=== PATIENT | male | born 1950 | race Caucasian/White ===

== ENCOUNTER 2018-11-02 10:59 | Emergency (ER) | payer BC, MEDICARE, OTHER ==
[2018-11-02] MEDS ORDERED: Morphine VIAL* 4 MG/ML VIAL (1 ml vial) IV ONE (11:21)
[2018-11-02 12:43] VITALS: BP 130/72
--- NOTE | 2018-11-02 15:27 | ED ---
Upper Extremity Pain - HPI Summary HPI Summary: Patient is a 68-year-old male who presents to the ED after a fall onto the left shoulder. He endorses left shoulder pain without pain to the elbow or clavicle. He denies hitting his head or LOC. He endorses limited range of motion and pain is worse with external rotation and abduction of the arm. He has never injured this shoulder before. 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 He denies any numbness or tingling, denies any color temperature changes to the ipsilateral arm. - History of Current Complaint Chief Complaint: EDExtremityUpper Stated Complaint: LEFT ARM INJURY Time Seen by Provider: 11/02/18 11:19 Hx Obtained From: Patient Mechanism Of Injury: Direct Blow Onset/Duration: Started Hours Ago Timing: Constant Severity Initially: Severe Severity Currently: Severe Pain Location: Shoulder Character: Aching Aggravating Factor(s): Movement, Lifting, Flexion Alleviating Factor(s): Rest, Ice Associated Signs & Symptoms: Positive: Negative Related History: Dominant Hand Right - Risk Factors DVT Risk Factors: Negative Septic Arthritis Risk Factor: Negative - Allergies/Home Medications Allergies/Adverse Reactions: Allergies Allergy/AdvReac Type Severity Reaction Status Date / Time atorvastatin [From Lipitor] Allergy See Comment Verified 11/02/18 11:14 shrimp Allergy Nausea And Verified 11/02/18 11:14 Vomiting PMH/Surg Hx/FS Hx/Imm Hx Previously Healthy: Yes Endocrine/Hematology History: Denies: Hx Diabetes Cardiovascular History: Reports: Hx Angina, Hx Coronary Artery Disease, Hx Hypercholesterolemia, Hx Hypertension Respiratory History: Denies: Hx Asthma, Hx Chronic Obstructive Pulmonary Disease (COPD) - Immunization History Hx Pertussis Vaccination: No Immunizations Up to Date: Yes Infectious Disease History: No Infectious Disease History: Denies: History Other Infectious Disease, Traveled Outside the [place] in Last 30 Days - Social History Occupation: Unemployed Lives: With Family Alcohol Use: Rare Substance Use Type: Reports: None Smoking Status (MU): Former Smoker Type: Cigarettes Have You Smoked in the Last Year: No Review of Systems Constitutional: Negative Negative: Fever, Chills, Fatigue, Skin Diaphoresis Negative: Palpitations, Chest Pain Negative: Shortness Of Breath, Cough Genitourinary: Negative Positive: no symptoms reported, see HPI Musculoskeletal: Other Positive: Arthralgia Skin: Negative Neurological: Negative All Other Systems Reviewed And Are Negative: Yes Physical Exam Triage Information Reviewed: Yes Vital Signs On Initial Exam: Initial Vitals Temp Pulse Resp BP Pulse Ox 100 F 71 16 149/78 97 11/02/18 11:09 11/02/18 11:09 11/02/18 11:09 11/02/18 11:09 11/02/18 11:09 Vital Signs Reviewed: Yes Appearance: Positive: Well-Appearing, Well-Nourished Skin: Positive: Warm, Skin Color Reflects Adequate Perfusion Head/Face: Positive: Normal Head/Face Inspection Eyes: Positive: EOMI, ALLEN, Conjunctiva Clear Cardiovascular: Positive: Normal, RRR, Pulses are Symmetrical in both Upper and Lower Extremities Musculoskeletal: Positive: Pain @ - left shoulder pain Neurological: Positive: Sensory/Motor Intact, Alert, Oriented to Person Place, Time, Speech Normal Psychiatric: Positive: Normal, Affect/Mood Appropriate Diagnostics - Vital Signs Vital Signs Temp Pulse Resp BP Pulse Ox 11/02/18 12:43 98.7 F 56 17 130/72 98 11/02/18 12:17 58 130/72 96 11/02/18 12:00 61 98 11/02/18 11:47 63 123/69 97 11/02/18 11:45 58 97 11/02/18 11:41 17 11/02/18 11:09 100 F 71 16 149/78 97 - Laboratory Lab Statement: Any lab studies that have been ordered have been reviewed, and results considered in the medical decision making process. Course/Dx - Course Course Of Treatment: Was treatment, the patient is evaluated for left shoulder injury. Unable to abduct or externally rotate the arm. Patient feels most comfortable with arm internally rotated. He is able to extend the elbow joint, however with minimal pain. X-ray obtained which shows a proximal humeral fracture. This appears angulated. This was read by NADIR Black. He will follow up with orthopedics. Sling is given. Morphine is given in the ED and prescription is sent pharmacy for hydrocodone. - Diagnoses Differential Diagnosis/HQI/PQRI: Positive: Fracture (Open), Fracture (Closed), Strain, Sprain Provider Diagnoses: Humeral fracture Discharge - Sign-Out/Discharge Documenting (check all that apply): Patient Departure Patient Received Moderate/Deep Sedation with Procedure: No - Discharge Plan Condition: Stable Disposition: HOME Prescriptions: Hydrocodone/Acetamin 10/325(NF [[place] 10/325 (NF)] 1 tab PO Q6H #12 tab MDD 4 HYDROcodone/ACETAMIN 5-325 MG* [[place] 5-325 TAB*] 1 tab PO Q4H PRN #18 tab MDD 6 PRN Reason: Pain Patient Education Materials: Arm Fracture in Adults (ED) Referrals: Elvin Rodrigues MD [Primary Care Provider] - Martinez Castorena MD [Medical Doctor] - Additional Instructions: Please follow-up with Dr. Buenrostro in the orthopedic clinic Call the office today to make an appointment Pain control is given to you ibuprofen 600 mg 3 times daily For pain not well controlled with ibuprofen, you may use the [place] up to every 6 hours as needed Keep arm in sling - Billing Disposition and Condition Condition: STABLE Disposition: Home
== END 2018-11-02 12:43 | disposition home or self-care (01) ==
LOC: ED 10:59
DX: S42.215A Unspecified nondisplaced fracture of surgical neck of left humerus, initial encounter for closed fracture (principal); W19.XXXA Unspecified fall, initial encounter; Y92.9 Unspecified place or not applicable; Y99.0 Civilian activity done for income or pay; Z88.8 Allergy status to other drugs, medicaments and biological substances; Z91.013 Allergy to seafood; Z87.891 Personal history of nicotine dependence
CPT/HCPCS: 96374; 99282; J2270

== ENCOUNTER 2018-11-18 12:02 | Day surgery (SDC) | payer OTHER ==
[~2018-11-18 12:02] MED LIST: Buffered Lidocaine 1% SYRIN* 1 ML/SYRINGE INTRADERM ONE; Dexamethasone IV* 4 MG/ML 1 ML (4 MG) IV SLOW PU ONE; Famotidine IV* 10 MG/ML 2 ML (20 mg) IV ONE; Lactated Ringers 1000 ML Bag* 1,000 ML IV SCH
[2018-11-18] MEDS ORDERED: Famotidine IV* 10 MG/ML 2 ML (20 mg) ONE (12:21)
[2018-11-18] MEDS ORDERED: Dexamethasone IV* 4 MG/ML 1 ML (4 MG) ONE (12:21)
[2018-11-18] MEDS ORDERED: Buffered Lidocaine 1% SYRIN* 1 ML/SYRINGE INTRADERM ONE (12:21)
[2018-11-18] MEDS ORDERED: ceFAZolin 2 GM PREMIX in ORs 2 GM/50 ML BAG IVPB ONE (12:21)
[2018-11-18] MEDS ORDERED: Midazolam* 1 MG/ML 2 ML VIAL (2 MG) ONE (12:28)
[2018-11-18] MEDS ORDERED: Propofol* 10 MG/ML 20 ML BTL ONE (12:28)
[2018-11-18] MEDS ORDERED: fentaNYL* 50 MCG/ML 2 ML VIAL (100 MCG VIAL) ONE (12:28)
[2018-11-18] MEDS ORDERED: Lidocaine 2% PF * 5 ML VIAL ONE (12:28)
[2018-11-18] MEDS ORDERED: ROPIVACAINE 5 MG/ML 30 ML BTL (0.5%) ONE (12:28)
[2018-11-18] MEDS ORDERED: Succinylcholine* 20 MG/ML 10 ML VIAL ONE (12:28)
[2018-11-18] MEDS ORDERED: EPHEDrine (Pressors)* 50 MG/ML VIAL ONE ×2 (15:01→16:46)
[2018-11-18] MEDS ORDERED: Phenylephrine INJ* 10 MG/ML 1 ML VIAL (10 MG) ONE (15:07)
[2018-11-18] MEDS ORDERED: Glycopyrrolate IV* 0.2 MG/ML 1 ML VIAL ONE (16:00)
[2018-11-18] MEDS ORDERED: Bupivacaine 0.5% W/EPI SDV* 30 ML VIAL ONE (16:01)
[2018-11-18] MEDS ORDERED: Ondansetron INJ* 2 MG/ML VIAL ONE (17:14)
[2018-11-18] MEDS ORDERED: DiMENhydriNATE IV* 50 MG/ML VIAL ONE (18:01)
[2018-11-18] MEDS ORDERED: fentaNYL* 50 MCG/ML 2 ML VIAL (100 MCG VIAL) IV PRN (18:03)
[2018-11-18] MEDS ORDERED: oxyCODONE/Acetamin 5/325 MG* TAB PO PRN (18:03)
[2018-11-18] MEDS ORDERED: DiMENhydriNATE IV* 50 MG/ML VIAL IV PUSH PRN (18:03)
[2018-11-18] MEDS ORDERED: PROCHLORPERAZINE INJ 5 MG/ML 2 ML VIAL IV PRN (18:03)
[2018-11-18] MEDS ORDERED: Naloxone* 0.4 MG/ML 1 ML VIAL IV PRN (18:03)
[2018-11-18] MEDS ORDERED: HYDROcodone/ACETAMIN 5-325 MG* 1 TAB PO PRN (18:03)
[2018-11-18 18:21] VITALS: BP 118/69
--- NOTE | 2018-11-20 01:05 | OP ---
OPERATIVE REPORT: DATE OF OPERATION: 11/18/18 DATE OF : 52 SURGEON: Dr. Martinez Castorena. PART MAKER: ZAHIRA Staples. ANESTHESIOLOGIST: Dr. Leatha Cabrera. ANESTHESIA: General anesthesia, regional interscalene block anesthesia. PRE-OP DIAGNOSIS: Left shoulder proximal humerus fracture, surgical neck, possible greater tuberosit y with displacement. POST-OP DIAGNOSIS: Left shoulder proximal humerus fracture, surgical neck, possible greater tuberosi ty with displacement. OPERATIVE PROCEDURE: Open reduction and internal fixation, left shoulder proximal humerus fracture. ANTIBIOTICS: Ancef 2 g IV. IV FLUIDS: 2100 cc crystalloid. ESTIMATED BLOOD LOSS: Approximately 300 cc. B[facility]-GD-PUTS TIME: 118 minutes. SPECIMEN: None. IMPLANTS: Synthes standard 3.5 mm LCP proximal humerus plate, filled with 3.5 mm locking screws and one 3.5 mm nonlocking screw. COMPLICATIONS: None. 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 I saw the patient in clinic. He had translation and angulation at the proximal humerus surgical neck fracture site. We discussed nonoperative and operative management. We decided to give him a week t o see if the reduction improved. He followed up in clinic on 11/12/18 and the reduction had not impr chantale. We opted for surgery. The patient's x-rays showed 11 to 15 mm of displacement at the fracture site and 20 to 40 degrees of apex medial on the anterior angulation as well as impaction at the fracture site of the surgical neck . There is a possible nondisplaced greater tuberosity fracture as well. Discussed pros and cons of surgery. Discussed risks and potential complications of surgery. Opted f or surgery. DESCRIPTION OF PROCEDURE: In preoperative holding, the patient signed a written consent. Operative extremity was marked in preoperative holding. The patient underwent a regional nerve block by Dr. Hema taylor. The patient was taken to the operating room and placed supine on the operating room table. Sedated a nd intubated. The patient was placed in the bed in a [place] head concierge. There was some lazy beach chair positioni ng made such that the head of the bed was only elevated perhaps 30 degrees. A spider arm positioner was positioned at the ready. The left shoulder and arm, upper extremity were prepped and then draped. Spider arm was draped. Jesika gerard time-out was called. Antibiotics had been given. I made a standard skin incision for the deltopectoral approach. I dissected down to the deltopectora l interval, identifying the cephalic vein. I took the cephalic vein laterally because that is the wa y I wanted to dissect. There was never any significant bleeding during the procedure, but there was a slow ooze from soft tissues and later in the case there was a continuous ooze from bone. Released some adhesions from deep to the deltoid. Placed a round retractor deep to the deltoid and R ichardson retractor deep to the pectoralis. Released a small amount of the anterior aspect of the co racoacromial ligament. I released a thin amount of clavipectoral fascia. I identified the biceps tendon in its groove just distal to the fracture site. I released the soft t issue directly superficial to the biceps and uncovered the biceps from its groove. The biceps long h ead tendon was notable for being in a horrible condition. It was very frayed. It actually tore just with manipulation at about the level of the fracture. I followed it up proximally towards the gleno id, removing it with big scissors, although it sort of came into multiple pieces from my retractor. Similarly, distally, when I went to tenodese it to the pectoralis, it was of incredibly poor quality and there was nothing substantive to repair, so no open tenodesis was performed. I next went about dissecting at the fracture site. I opened up the fracture site and debrided it wit andrew andradettjuma mulligan. Irrigation. There had been clear comminution and impaction at the fracture site such that the bone ends did not nicely line up like puzzle pieces. This was certainly the case. Shemar dey, I was able to line up the bicipital groove proximally and distally. I placed 2 K-wires, 1.6 mm in size, from anterior to posterior to hold provisional reduction. C-arm imaging was used to confirm adequacy of reduction. I next chose a plate, conventional Synthes proxim al humerus plate. I placed a nonlocking screw through the oval hole distally. I obtained x-rays. I changed the height of the plate, dropping it distal. I confirmed good plate position. I placed an additional locking screw distally. This kept my rotation in check and I placed locking screws proxim ally. X-ray images, both AP and lateral, showed very well lined-up bone, with no clear step-off and certain ly no angulation. I was very happy with the radiographic reduction. Plate position was also excelle nt. I filled all of the proximal plate holes, except the one with locking screws. I placed a third screw proximally, this one again locking. I obtained final x-ray views. I liked my fixation and my reduction. Irrigation. Closure of the deltopectoral interval with a running stitch using a colored Ethibond 0 suture. Irrig ation. Closure of the subcutaneous tissue with buried simple stitches using Vicryl 2-0 suture. Clos ure of the skin using abdirizak. Xeroform, 4x4s, ABDs, foam tape. Sling. The patient was awakened, ex tubated, and brought to the PACU. DISPOSITION: The patient was discharged home when medically stable . The patient will follow up with me in clinic in 10 to 14 days. He will receive antibiotics and pa in medication. He will receive wound care instructions. [id number]/[facility] #: [id number]
== END 2018-11-18 19:08 | disposition home or self-care (01) ==
LOC: OR 12:02
PROVIDERS: ATTEND Orthopaedic Surgery
DX: S42.222A 2-part displaced fracture of surgical neck of left humerus, initial encounter for closed fracture (principal); E78.5 Hyperlipidemia, unspecified; I25.10 Atherosclerotic heart disease of native coronary artery without angina pectoris; I10 Essential (primary) hypertension; Z95.5 Presence of coronary angioplasty implant and graft; G89.18 Other acute postprocedural pain; G51.0 Bell's palsy; W00.0XXA Fall on same level due to ice and snow, initial encounter; Y93.89 Activity, other specified; Y92.89 Other specified places as the place of occurrence of the external cause; Y99.0 Civilian activity done for income or pay
CPT/HCPCS: 76000; C1713; C1776; J0330; J0690; J1100; J1240; J2250; J2405; J2704; J2795; J3010